=== PATIENT | male | born 1995 | race Caucasian/White ===

== ENCOUNTER 2021-03-25 21:32 | Emergency (ER) | payer SELFPAY ==
[~2021-03-25] VITALS: Ht 177.8 cm; Wt 90.9 kg
[2021-03-26] MEDS ORDERED: NORCO 325 MG-51 TAB PO (00:09)
[2021-03-26 00:34] VITALS: BP 138/74; PULSE 94; TEMP 98.9
== END 2021-03-26 00:40 | disposition home or self-care (01) ==
LOC: COL.ER 21:32
DX: S42.201A Unspecified fracture of upper end of right humerus, initial encounter for closed fracture (principal); S01.81XA Laceration without foreign body of other part of head, initial encounter; Z23 Encounter for immunization; W17.89XA Other fall from one level to another, initial encounter; Y93.39 Activity, other involving climbing, rappelling and jumping off